=== PATIENT | female | born 1955 | race Two or more races ===

== ENCOUNTER → 2019-06-01 | Outpatient (CLI) | payer OTHER ==
--- NOTE | 2019-06-01 16:57 | KCIC ---
CHEST PA LATERAL History: Cough Comparison: None. Findings: Hyperinflation. Patchy left basilar opacity. Blunting of the left posterior costophrenic angle. Focal kyphosis of the thoracolumbar junction. Normal heart size. No pneumothorax. Left shoulder arthroplasty. Tortuous thoracic aorta. Impression: 1. Left basilar opacity, may represent atelectasis or developing consolidation. Recommend follow-up. 2. Blunting of the left posterior costophrenic angle, may indicate pleural thickening or small pleural effusion. Electronically signed by: Nelson Driscoll DO (06/01/2019 4:53 PM) [id number]
== END | disposition home or self-care (01) ==
LOC: KCIC 14:01
PROVIDERS: ATTEND Family Medicine
DX: R05 Cough (principal); M40.295 Other kyphosis, thoracolumbar region; Z96.612 Presence of left artificial shoulder joint
CPT/HCPCS: 71046

== ENCOUNTER → 2019-07-06 | Outpatient (CLI) | payer OTHER ==
[~2019-07-06] MED LIST: AZIT1PAC PO; CONTRAST GIVEN. MC PRN; ESOM20CA PO; IOHEXOL 300 MG/ML 100ML VIAL. IV ONE; TADA5TAB PO
--- NOTE | 2019-07-06 10:44 | KCIC ---
CT CHEST WITH IV CONTRAST History: Left basilar opacity and left posterior costophrenic angle blunting seen on chest radiograph, 50 year smoking history, abnormal lung sounds on physical exam Comparison: Chest radiograph dated 05/31/2019 Technique: Helical CT of the chest was performed after the administration of intravenous contrast. Coronal and sagittal reconstructions were obtained. Findings: The thyroid is symmetric. No axillary adenopathy. No mediastinal adenopathy. Calcified mediastinal lymph nodes likely related to remote granulomatous disease. Prominent bilateral hilar lymph nodes do not meet CT criteria for enlargement. The thoracic aorta diameter is normal. Tortuous descending thoracic aorta. Origin of the left vertebral artery directly off the aortic arch, a normal variant. The cardiac size is normal. Coronary artery calcifications. There is no pericardial effusion. Mild emphysematous changes. Bilateral dependent atelectasis. Right middle lobe, lingular, and left basilar linear opacities likely related to atelectasis or scarring. There is no suspicious pulmonary nodule or mass. No pleural effusion is observed. There is no pneumothorax. The central airways are patent. Cholecystectomy clips. The visualized upper abdomen is otherwise unremarkable. No acute osseous abnormality. Right shoulder arthroplasty. Advanced left glenohumeral joint arthrosis. Remote right 10th and 11th rib fractures. Severe levocurvature of the lower thoracic/visualized upper lumbar spine. Asymmetric L1 vertebral body height loss is chronic appearing and likely relates to the levocurvature. Moderate multilevel degenerative changes of the visualized spine. IMPRESSION: 1. No suspicious pulmonary nodule or mass. 2. Radiographic findings appeared to correspond to the severe levocurvature of the lower thoracic/upper lumbar spine, associated mild pulmonary atelectasis/scarring, and tortuous descending thoracic aorta. PQRS Compliance Statement: One or more of the following individualized dose reduction techniques were utilized for this examination: 1. Automated exposure control 2. Adjustment of the mA and/or kV according to patient size 3. Use of iterative reconstruction technique PQRS Compliance Statement: One or more of the following individualized dose reduction techniques were utilized for this examination: 1. Automated exposure control 2. Adjustment of the mA and/or kV according to patient size 3. Use of iterative reconstruction technique Electronically signed by: Giovanni Yoon MD (07/06/2019 10:41 AM) [id number]
== END | disposition home or self-care (01) ==
LOC: KCIC CT 09:14
PROVIDERS: ATTEND Family Medicine
DX: J43.9 Emphysema, unspecified (principal); J98.11 Atelectasis; I25.10 Atherosclerotic heart disease of native coronary artery without angina pectoris; M19.012 Primary osteoarthritis, left shoulder; M43.8X5 Other specified deforming dorsopathies, thoracolumbar region; Q25.46 Tortuous aortic arch; Z87.81 Personal history of (healed) traumatic fracture; Z96.611 Presence of right artificial shoulder joint
CPT/HCPCS: 71260; Q9967